=== PATIENT | female | born 1965 | race Caucasian/White ===

== ENCOUNTER 2023-10-10 08:05 | Emergency (ER) | payer OTHER ==
[~2023-10-10] VITALS: Ht 162.6 cm; Wt 69.1 kg
[2023-10-10 08:19] VITALS: BP 133/97
[2023-10-10] MEDS ORDERED: ATIVAN1 M1 PO (08:29)
[2023-10-10] MEDS ORDERED: ACID REDUCER20 MG PO (08:49)
== END 2023-10-10 09:15 | disposition home or self-care (01) ==
LOC: ED 08:05
DX: K21.00 Gastro-esophageal reflux disease with esophagitis, without bleeding (principal)

== ENCOUNTER 2023-10-22 09:09 | Emergency (ER) | payer OTHER ==
[~2023-10-22] VITALS: Ht 162.6 cm; Wt 68.2 kg
[~2023-10-22 09:09] MED LIST: ACID REDUCER20 MG PO; ATIVAN1 M1 PO
[2023-10-22] MEDS ORDERED: PROTONIX TR40 M1 PO (09:41)
[2023-10-22] MEDS ORDERED: CARAFATE1 GM/10 M1 PO ×2 (09:54)
[2023-10-22 09:57] VITALS: BP 99/71
== END 2023-10-22 10:17 | disposition home or self-care (01) ==
LOC: ED 09:09
DX: F41.9 Anxiety disorder, unspecified (principal); K29.70 Gastritis, unspecified, without bleeding; Z79.899 Other long term (current) drug therapy

== ENCOUNTER 2023-11-19 17:25 | Emergency (ER) | payer OTHER ==
[~2023-11-19] VITALS: Ht 162.6 cm; Wt 65.9 kg
[~2023-11-19 17:25] MED LIST changes: +CARAFATE1 GM/10 M1 PO; +PROTONIX TR40 M1 PO
[2023-11-19 18:48] VITALS: BP 137/94
== END 2023-11-19 18:49 | disposition home or self-care (01) ==
LOC: ED 17:25
DX: R13.10 Dysphagia, unspecified (principal); F41.9 Anxiety disorder, unspecified; Z79.899 Other long term (current) drug therapy

== ENCOUNTER 2023-11-20 07:33 | Emergency (ER) | payer OTHER ==
[~2023-11-20] VITALS: Ht 162.6 cm; Wt 65.9 kg
[2023-11-20 07:33] VITALS: BP 123/96
== END 2023-11-20 10:00 | disposition home or self-care (01) ==
LOC: ED 07:33
DX: F41.8 Other specified anxiety disorders (principal); F43.21 Adjustment disorder with depressed mood

== ENCOUNTER → 2023-12-09 | Outpatient (CLI) | payer OTHER | LOC: LAB 10:48 | DX: F41.9 Anxiety disorder, unspecified (principal); R53.81 Other malaise ==

== ENCOUNTER 2024-01-05 13:00 | Outpatient (RCR) | payer OTHER | END 2024-01-12 | disposition home or self-care (01) | LOC: SPEECH | DX: R13.12 Dysphagia, oropharyngeal phase (principal) ==